=== PATIENT | female | born 1970 | race Caucasian/White ===

== ENCOUNTER 2017-11-21 18:43 | Emergency (ER) | payer OTHER ==
[2017-11-21 19:13] VITALS: BP 116/83
[2017-11-21] MEDS ORDERED: Lidocaine 1% 5ml(IM or SUTURE)(PAIN CLINIC) IJ ONE (19:16)
[2017-11-21] MEDS ORDERED: PHENAZOPYRIDINE HCL 200 MG TABLET PO ONE (19:17)
--- NOTE | 2017-11-21 19:21 | ED Physician Documentation ---
Female Urogenital Problems - HISTORIAN Historian: patient - HPI Stated Complaint: Right lower back pain Chief Complaint: Female Urogenital Problems Further Comments: yes (47 year old female patient presents with complanits of urinary frequency; pain, supra pubic discomfort and right flank pain x 3 days.) - Associated Symptoms Urinary Symptoms: frequent urination, discomfort w/ urination, burning w/ urination, urgency w/ urination, pain w/ urination - ROS CONST: none GI/: denies: nausea, vomiting, diarrhea CVS/RESP: none EYES/ENT: none NEURO/PSYCH: none MS/SKIN/LYMPH: none - PAST HX Past History: none Other History: none Surgeries/Procedures: none Allergies/Adverse Reactions: Allergies Allergy/AdvReac Type Severity Reaction Status Date / Time Sulfa (Sulfonamide Allergy Severe Anaphylaxis Verified 11/21/17 19:14 Antibiotics) amoxicillin Allergy Mild Rash Verified 11/21/17 19:14 erythromycin base Allergy Mild Rash Verified 11/21/17 19:14 Home Medications: Ambulatory Orders Medication Instructions Recorded Levofloxacin [Levaquin] 500 mg PO DAILY #7 tablet 11/21/17 Phenazopyridine HCl [Pyridium] 200 mg PO TID #6 tablet 11/21/17 - SOCIAL HX Smoking History: non-smoker - FAMILY HX Family History: denies: none - VITAL SIGNS Vital Signs: Vital Signs Temp Pulse Resp BP Pulse Ox 99.0 F 78 18 116/83 99 11/21/17 18:50 11/21/17 18:50 11/21/17 18:50 11/21/17 18:50 11/21/17 18:50 - REVIEWED ASSESSMENTS Nursing Assessment Reviewed: Yes Vitals Reviewed: Yes ED Results Lab/Radiology - Orders Orders: ED Orders Category Date Time Status Lidocaine 1% 5ml(IM or SUTURE) [Xylocaine] Med 11/21/17 19:16 Once 50 mg IJ NOW ONE Phenazopyridine HCl [Pyridium] Med 11/21/17 19:17 Once 200 mg PO NOW ONE cefTRIAXone SODIUM [Rocephin] Med 11/21/17 19:16 Once 1,000 mg IM NOW ONE Female Urogenital Problems - EXAM General Appearance: mild distress EENT: eye inspection normal, WALTER Respiratory: no resp. distress, breath sounds nml CVS: reg rate & rhythm, heart sounds normal, equal pulses, no murmur, no gallop, PMI nml, no JVD, no friction rub, 24 Abdomen: no organomegaly, no distention, nml bowel sounds, tenderness (suprapubic area) Back: non-tender, painless ROM, CVA tenderness (right) Skin: color nml, no rash, warm,dry Extremities: non-tender, normal range of motion, no evidence of injury, no edema, J, [employer] Neuro: oriented X3, CN's nml as tested, motor nml, sensation nml, mood/affect nml Discharge Clincal Impression: Urinary tract infection Qualifiers: Urinary tract infection type: acute cystitis Hematuria presence: with hematuria Qualified Code(s): N30.01 - Acute cystitis with hematuria Prescriptions: Levofloxacin [Levaquin] 500 mg PO DAILY #7 tablet Phenazopyridine HCl [Pyridium] 200 mg PO TID #6 tablet Referrals: Primary Doctor,No [Primary Care Provider] - 2 Days Additional Instructions: occupational physician your prescription and start it tomorrow. Drink at least 64 oz of water daily. Avoid caffeinated beverages Cranberry juice will help with symptoms. Tylenol every 4 hours as needed for pain/fever or ibuprofen every 6 hours as n eeded for pain and fever See your primary care provider for a repeat UA 48 hours after completing your antibiotic. Condition: Stable Disposition: 01 HOME, SELF-CARE Decision to Admit: NO Decision Time: 19:20
[2017-11-22 16:02] LABS: APPEARANCE,URINE TURBID (CLEAR); COLOR,URINE YELLOW (YELLOW); OCCULT BLOOD,URINE 3+ (NEGATIVE); PH URINE 5.5 (5.0 - 8.0); UROBILINOGEN URINE 0.2 Eu (0.2-1.0)
== END 2017-11-21 19:40 | disposition home or self-care (01) ==
LOC: ED 18:43
DX: N30.01 Acute cystitis with hematuria (principal)
CPT/HCPCS: 81002; 87086; 96372; J0696